=== PATIENT | male | born 1995 | race Caucasian/White ===

== ENCOUNTER 2016-07-14 02:44 | Emergency (ER) | payer BC ==
[~2016-07-14] VITALS: Ht 190.5 cm; Wt 100.0 kg
[2016-07-14 02:46] VITALS: BP 132/76; TEMP 97.5
[2016-07-14 04:56] VITALS: PULSE 79
== END 2016-07-14 04:50 | disposition home or self-care (01) ==
LOC: COL.ER 02:44
DX: S51.811A Laceration without foreign body of right forearm, initial encounter (principal); W25.XXXA Contact with sharp glass, initial encounter; Y92.009 Unspecified place in unspecified non-institutional (private) residence as the place of occurrence of the external cause